=== PATIENT | male | born 1970 | race Native Hawaiian/Other Pacific Islander ===

== ENCOUNTER 2018-06-25 13:14 | Inpatient (IN) | payer MEDICAID ==
[~2018-06-25] VITALS: Ht 190.5 cm; Wt 102.7 kg
--- NOTE | 2018-06-25 15:20 | NUR ---
Pt. admitted to unit at 15:20 via direct admit from [facility] on 5150 for DTS. pt. came into [facility] voluntarily and stated he has been going down hill since February 2018. Overwhelming depression to the point that he considered jumping [place]. Pt. ambulated onto unit, belongings checked, and safety check and body check done. Pt. is tearful at times during the interview process, saying that he is homeless and has experienced a lot of adverse events since March 2018 most significant was breaking his arm and the cast not setting his radius correctly which now causes him pain. Addendum: 06/25/18 at 1818 by Felipe Montilla RN Admit note continued. Pt. currently reports that his pain in his right wrist is 3.5/10. Pt.'s vitals upon admission are pulse of 84, SP02 99, resp 18, BP of 141/87 Pt. currently denies SI/HI. Pt. is vegetarian, inessa collins in.
[2018-06-25] MEDS ORDERED: tuberculin, purif. prot. deriv. 5 units/0.1ml ID ONE (16:35)
[2018-06-25] MEDS ORDERED: acetaminophen 325mg tablet PO PRN (16:35)
[2018-06-25] MEDS ORDERED: magnesium hydroxide 30ml (MOM) UD suspension PO PRN (16:35)
[2018-06-25] MEDS ORDERED: mag hydrox/Alum hydrox/simeth 30ml oral suspension PO PRN (16:35)
[2018-06-25] MEDS ORDERED: HYDR25SU48 RC (17:01)
[2018-06-25] MEDS ORDERED: GEMF600T89 PO (17:01)
[2018-06-25] MEDS ORDERED: OMEP40CA37 PO (17:01)
[2018-06-25] MEDS ORDERED: TEST200V10 IM (17:01)
[2018-06-25] MEDS ORDERED: ACYC-202 PO (17:01)
[2018-06-25] MEDS ORDERED: NAPR-56 PO (17:01)
[2018-06-25] MEDS ORDERED: NICOTINE POLACRILEX 4 MG LOZENGE BC PRN (17:30)
[2018-06-25 20:00] VITALS: BP 131/87
[2018-06-25] MEDS ORDERED: clonazePAM 1mg tablet PO ONE (20:55)
[2018-06-25] MEDS ORDERED: NICOTINE POLACRILEX 2 MG LOZENGE MM PRN (21:10)
--- NOTE | 2018-06-25 23:38 | NUR ---
Nursing Progress Note Legal hold: 5150 Client on voluntary/involuntary status for being a danger to himself Report received from nurse with use of SALOME Wang RN Why are they here: The patient was admitted earlier today as a direct admit from [facility] ER on a 5150 hold after he reported that he was suicidal with a plan to jump off the overpass bridge. Assessment What has happened this shift: The patient has been fairly isolative to his room. He was pleasant on approach. He presents as motivated for treatment but is unhappy about being here on the hold. He states when he feels things are not in his control he has increased anxiety. He denies psychotic symptoms and none were evident during the evening assessment. He did state due to his severe lack of sleep that in recent weeks he has been seeing some small lights. He stated that he feels the number one problem that he is experiencing is his lack of sleep. He stated that in the past when he has been depressed he has been hypersomulent. He stated that his energy level has been ok but he has had very poor concentration. He stated that he has been having suicidal thoughts multiple times per day but not continuously. He is upset about his right arm having chronic pain and that he feels it never healed right. He is anxious to have it looked at medically why he is here. He stated that past dx include MDD, dysthymia, ARBEN, Borderline Aspergers and at one point antisocial personality disorder. S/I, H/I: The patient is here for suicidal thoughts to jump off an overpass A/VH: Denies currently Sleep: Appears to be asleep at this time after having one mg of klonopin ADL's:independant Group attendance: NA Were meds taken:Yes Any med S/E: The patient denies Mental Status Exam Appearance:Clean, appropriately dressed Eye contact: good Behavior: very pleasant, cooperative Speech: Coherent, spontaneous Mood: "Variable" per patient Affect: WNL Thought process:Linear and logical Thought Content: Situational difficulties, focused on his right arm and left index finger. Suicidal thoughts at times. Motivated for treatment Cognition: Alert and oriented Insight: Fair Judgment: Fair Interventions PRN's used: Nicotine lozenges Therapeutic interventions: One to one with the patient to assess severity of depressive symptoms and self harm risk. Reviewed his home med list with him and discussed homes with Dr. Mckeon and that the patient has not been sleeping well. The patient was made aware of the plan of care. Educated to current medications. Restraints/seclusion/emergency medication:NA Justification of Continued Inpatient Treatment: The patient has been feeling psychiatrically unstable and having suicidal thoughts to jump off an overpass.
[2018-06-26 07:30] VITALS: BP 109/72
[2018-06-26] MEDS ORDERED: hydrocortisone acetate 25mg rectal suppository RC SCH (08:00)
[2018-06-26] MEDS: pantoprazole 40mg Tablet.DR PO SCH (08:07)
[2018-06-26] MEDS: gemfibrozil 600mg tablet PO SCH (08:07)
[2018-06-26] MEDS: NICOTINE POLACRILEX 4 MG LOZENGE BC PRN ×4 (08:14→19:04)
[2018-06-26 09:08] LABS: CHOL/HDL RATIO 3.1 (0.00-4.99); CHOLESTEROL 202 MG/DL (0-200); HDL CHOLESTEROL 65 MG/DL (35-60); LDL CHOLESTEROL 108 MG/DL (50-100); TRIGLYCERIDES 170 MG/DL (20-135)
[2018-06-26 09:49] LABS: HEMOGLOBIN A1C 5.1 % (4.5-6.2)
[2018-06-26] MEDS: acetaminophen 325mg tablet PO PRN (11:50)
--- NOTE | 2018-06-26 17:00 | NUR ---
Nursing Progress Note Legal hold: 5150 Client on voluntary/involuntary status for being a danger to himself Report received from nurse with use of SALOME Akhtar RN Why are they here: The patient was admitted earlier today as a direct admit from [facility] ER on a 5150 hold after he reported that he was suicidal with a plan to jump off the overpass bridge. Assessment What has happened this shift: Pt. reports he slept well ast night with klonopin 1mg. Pt. seen in day room for meals and groups. Pt. very frustrated as both his meals were not vegetarian. Pt. anxious to be seen by medical doctor and psychiatrist today. Pt. reporting passive SI, "I want to go to sleep and not wake up". Pt. seen by hospitalist, pt. to get X-ray of left index finger, Right shoulder, and Right radius. Pt. talked with this RN about his past of being with last partner for 15 years and how his depression started 2 years ago when they broke up. Pt. reports that he has been told he has a personality d/o in the past by a mental health provider, but that another provider told him he has no personality d/o. Pt. is tearful at times and feels overwhelemed by multiple stressors in his life, including homelessness and lack of support systems. S/I, H/I: Pt. reports passive SI. A/VH: Denies currently Sleep: Appears to be asleep at this time after having one mg of klonopin ADL's:independant Group attendance: Y Were meds taken:Y Any med S/E: The patient denies Mental Status Exam Appearance:Clean, appropriately dressed Eye contact: good Behavior: Cooperative but frustrated at times. Speech: Coherent, spontaneous Mood: Labile at times. Affect: WNL Thought process:Linear and logical Thought Content: Situational difficulties, focused on his right arm and left index finger. Suicidal thoughts at times. Motivated for treatment Cognition: Alert and oriented Insight: Fair Judgment: Fair Therapeutic interventions: One to one with the patient to assess for severity of depressive symptoms and self harm risk. Discussed his plans for the future. Educated to medications. Restraints/seclusion/emergency medication:NA Justification of Continued Inpatient Treatment: The patient needs continuation of crisis interruption. Pt. to recieve x-rays of right shoulder, arm, and left index finger. Pt. is a risk for suicide 2nd to his depressive symptoms, feeling overwhelmed and not wanting to live, and homelessness.
[2018-06-26 20:00] VITALS: BP 125/83
[2018-06-26] MEDS: naproxen sodium 220mg tablet PO PRN (21:31)
[2018-06-26] MEDS ORDERED: traZODone 50mg tablet PO PRN (21:50)
--- NOTE | 2018-06-27 | NUR ---
Nursing Note: Pt. came out into the hallway wearing boxers, educated by this news writer that he needs to put pants on in order to come into the hallway. Pt. somewhat defensive, states, "You don't allow shorts?" however voices understanding.
[2018-06-27] MEDS: NICOTINE POLACRILEX 4 MG LOZENGE BC PRN ×3 (00:21→14:57)
[2018-06-27] MEDS ORDERED: QUEtiapine 25mg tablet PO ONE ×2 (00:40→21:00)
--- NOTE | 2018-06-27 04:34 | NUR ---
Nursing Progress Note: Legal hold: 5150 Client on voluntary/involuntary status for DTS Report received from nurse with use of SBAR: KHURRAM Wang Why are they here: Pt. admitted from [facility], where he has been a resident for the last 6-8 years. He previously lost his job in 2004, and was dependent on his 's income, however the two and he became homeless approximately 4 months ago. He reported anxiety and passive S/I, "I want to just sleep and go away in relation to the stress." Pt. also feels rejected, as he was denied voluntary admission to several mental health facilities r/t his insurance. He also has experienced multiple orthopedic injuries over the past 6-8 months including a right clavicular fracture, a right wrist fracture, and a left index finger injury. Injuries did not heal well and cause him chronic pain, new X-rays have been ordered for 06/27/18. Assessment What has happened this shift: Pt. standing in doorway of his room at beginning of the shift requesting Nicotine Lozenge, administered with effectiveness. He continued to isolate in his room throughout the shift reading in bed. 1:1 completed at bedside, pt. denies S/I and reports his depression is better and he is feeling hopeful about the positive things to come. Pt. states, "I am happy to be working with a team now, I felt dysfunctional on my medications before, I was too overwhelmed." Pt. also reports he has had insomnia for a few months r/t his anxieties, and he received 1mg of Clonazepam last night and was able to sleep through the night for the first time in a month. However, this writher explained to pt. that the Clonazepam he received last night was a one-time order. Order obtained from [facility] for Trazodone 100mg PRN, and medication administered. Pt. voiced slight irritation that he was not being given Clonazepam again as it had worked for him the night before, however compliant with medication. Pt. awoke at approximately 0015, and reported not being able to sleep despite receiving PRN Trazodone 2 hours previously and was feeling anxious r/t to this. [facility] notified and obtained new one-time order for Seroquel 100mg MRX1. Pt. again irritable r/t not receiving Clonazepam and requests to speak to MD regarding this tomorrow, however compliant with medication.. Pt. able to sleep through the rest of the night without needing second dose of Seroquel, will endorse to AM shift. S/I, H/I: Denies A/VH: Denies Sleep: Reports chronic insomnia, and awoke several times throughout the night requesting anxiolytic Clonazepam per sleep aide. ADL's: Independent Group attendance: Reports he attends groups Were meds taken: Yes Any med S/E: None Mental Status Exam Appearance: Freshly showered and dressed appropriately Eye contact: Good Behavior: Cooperative, fatigued, slightly restless and irritable at times Speech: Somewhat monotonous, however WNL Mood: Pleasant, somewhat guarded Affect: Blunted, animates with conversation Thought process: Poverty of thought r/t mental health Thought Content: Preoccupation with feelings of anxiety caused by insomnia. Cognition: A&O X4 Insight: Fair Judgment: Fair Interventions PRN's used: Trazodone X1 and Seroquel 100mg. Therapeutic interventions: Introduced self and established rapport, maintained a safe and therapeutic environment, provided medication education, insured contract for safety, monitored for changes in behavior, obtained orders for medications to promote sleep, and maintained Q 15 min. safety checks. Restraints/seclusion/emergency medication: N/A Justification of Continued Inpatient Treatment: Pt. requires interruption of crisis, medication adjustments, and group therapy. Also a plan for discharge as he is currently homeless.
[2018-06-27 08:00] VITALS: BP 104/67
[2018-06-27] MEDS: pantoprazole 40mg Tablet.DR PO SCH (09:02)
[2018-06-27] MEDS: gemfibrozil 600mg tablet PO SCH (09:03)
[2018-06-27 13:50] LABS: ALANINE AMINOTRANSFERASE 18 U/L (12-78); ALBUMIN 3.3 G/DL (3.4-5.0); ALBUMIN/GLOBULIN RATIO 1.1 (1.1-1.5); ALKALINE PHOSPHATASE 67 IU/L (46-116); ANION GAP 6 (8-16); ASPARTATE AMINO TRANSFERASE 15 U/L (10-37); BLOOD UREA NITROGEN 8 MG/DL (7-18); BUN/CREATININE RATIO 9.2 (5.4-32.0); CALCIUM 9.2 MG/DL (8.5-10.1); CHLORIDE 108 MMOL/L (99-107); CREATININE 0.87 MG/DL (0.60-1.10); GLUCOSE 75 MG/DL (70-104); POTASSIUM 4.2 MMOL/L (3.5-5.1); SODIUM 144 MMOL/L (135-145); TOTAL CARBON DIOXIDE 30.4 MMOL/L (24-32); TOTAL PROTEIN 6.4 G/DL (6.4-8.2); eGFR > 90 ML/MIN
[2018-06-27] MEDS ORDERED: venlafaxine XR 75mg capsule (Q24H) PO ONE (14:05)
[2018-06-27 14:42] LABS: BILIRUBIN,TOTAL 0.3 MG/DL (0.1-1.0)
[2018-06-27] MEDS: naproxen sodium 220mg tablet PO PRN (14:58)
--- NOTE | 2018-06-27 16:39 | NUR ---
Nursing Progress Note Legal hold: 5150 Client on voluntary/involuntary status for being a danger to himself Report received from Mariel PAULSON with use of SBAR Why are they here: The patient was admitted as a direct admit from [facility] ER on a 5150 hold after he reported that he was suicidal with a plan to jump [place] the over[place] bridge. Assessment What has happened this shift: Recieved Pt in bed sleeping w/o distress at shift change. Awake for breakfast and a bit frustrated at not being able to eat in room, but able to listen to redirection. Napped in AM and attended group with good participation. Actively engaged in discussion with nurse about life stressors and coping skills. Recieved new order/med of venlafaxine and acknowledged good understanding of effects and side effects. Has a posotive outlook on why he is here and wants to plan for overcoming obstacles in his life. S/I, H/I: Denies active SI. A/VH: Denies currently Sleep: Slept 5.75 hrs last night and napped in AM. ADL's:independant Group attendance: Y Were meds taken:Y Any med S/E: The patient denies Mental Status Exam Appearance:Clean, appropriately dressed Eye contact: good Behavior: Pleasant and cooperative Speech: Coherent, spontaneous Mood: Calm. Affect: WNL Thought process:Linear and logical Thought Content: On life stressors and frustratioins, yet motivated for treatment Cognition: Alert and oriented Insight: Fair Judgment: Fair Therapeutic interventions: One to one with the patient to assess for severity of depressive symptoms and self harm risk. Discussed his plans for the future. Educated to medications. Restraints/seclusion/emergency medication:NA Justification of Continued Inpatient Treatment: The patient needs continuation of crisis interruption. Pt. is a risk for suicide 2nd to his depressive symptoms, feeling overwhelmed and not wanting to live, and homelessness.
[2018-06-27 19:00] VITALS: BP 141/93
[2018-06-27] MEDS: acetaminophen 325mg tablet PO PRN (20:57)
[2018-06-27] MEDS ORDERED: quetiapine 100mg tablet PO SCH (21:00)
--- NOTE | 2018-06-28 03:15 | NUR ---
Nursing Progress Note: Legal hold: 5150 Client on involuntary status for DTS. Report received from nurse with use of SBAR: KHURRAM Clifford Why are they here: Pt. admitted from [facility], where he has been a resident for the last 6-8 years. He previously lost his job in 2004, and was dependent on his 's income, however the two and he became homeless approximately 4 months ago. He reported anxiety and passive S/I, "I want to just sleep and go away in relation to the stress." Pt. also feels rejected, as he was denied voluntary admission to several mental health facilities r/t his insurance. He also has experienced multiple orthopedic injuries over the past 6-8 months including a right clavicular fracture, a right wrist fracture, and a left index finger injury. Injuries did not heal well and cause him chronic pain, new X-rays have been ordered for 06/27/18. Assessment What has happened this shift: The patient was seen in his room for 1:1. He was calm and cooperative. He reports that a series of bad events has led to him being here. He has been homeless for 4 months, has no car, and basically wants help finding housing in [place] [facility]. "I've heard that [facility] has the best resources for people that are homeless and need help with transitional housing. I'm hoping a rn social services will get me set up with them." The patient denies SI/HI, or AV/H. He c/o pain to his right wrist and was given Tylenol with good results. He denies feeling depressed and does not appear anxious. He did no c/o insomnia and has been sleeping since med pass. He asked for and received Nicotine Lozenge x1 at beginning of shift. S/I, H/I: Denies A/VH: Denies Sleep: Has been sleeping since med pass. ADL's: Independent Group attendance: No groups tonight. Were meds taken: Yes Any med S/E: None noted or observed. Mental Status Exam Appearance: Freshly showered and dressed appropriately. Eye contact: Direct. Behavior: Cooperative, isolating in his room. Speech: Normal volume, rate/rhythm. Mood: "Great mood." Affect: Blunted, animates with conversation. Thought process: Linear, goal directed. Thought Content: Preoccupation with discharge to [facility].. Cognition: A&O X4 Insight: Fair Judgment: Fair Interventions PRN's used: Tylenol 650mg with good pain relief. Therapeutic interventions: Introduced self and established rapport, maintained a safe and therapeutic environment, provided medication education, insured contract for safety, monitored for changes in behavior, obtained orders for medications to promote sleep, and maintained Q 15 min. safety checks. Restraints/seclusion/emergency medication: N/A Justification of Continued Inpatient Treatment: Pt. requires interruption of crisis, medication adjustments, and group therapy. Also a plan for discharge as he is currently homeless.
[2018-06-28 07:00] VITALS: BP 101/71
[2018-06-28] MEDS ORDERED: venlafaxine XR 75mg capsule (Q24H) PO SCH (08:00)
[2018-06-28] MEDS: gemfibrozil 600mg tablet PO SCH (08:14)
[2018-06-28] MEDS: pantoprazole 40mg Tablet.DR PO SCH (08:15)
[2018-06-28] MEDS: naproxen sodium 220mg tablet PO PRN (08:43)
[2018-06-28] MEDS: NICOTINE POLACRILEX 4 MG LOZENGE BC PRN (08:44)
[2018-06-28] MEDS: acetaminophen 325mg tablet PO PRN (08:44)
[2018-06-28] MEDS ORDERED: QUET100T33 PO (10:13)
[2018-06-28] MEDS ORDERED: VENL75CA61 PO (10:13)
--- NOTE | 2018-06-28 11:37 | NUR ---
DISCHARGE NOTE Patient denies SI, AVH. Patient complaining about wrist and wanting to have surgery while inpatient. Educated on follow-up with orthopedics. [employer] St[employer] from [facility] here to take patient home. Educated on medications, emergency contact numbers, symptom management, follow-up, coping skills. Patient states that he is not going to stay in [place], but is trying to make it to [facility]. Patient unhappy about discharge. Patient discharged in stable condition.
[2018-07-09] MEDS ORDERED: TESTOSTERONE CYPIONATE IM SCH (09:00)
== END 2018-06-28 11:37 | disposition home or self-care (01) | DRG 754 ==
LOC: EEVIPCON → EDBD 15:18 → ADULT MH 15:18
PROVIDERS: ADMIT Psychiatry & Neurology Psychiatry; ATTEND Psychiatry & Neurology Psychiatry
DX: F32.9 Major depressive disorder, single episode, unspecified (principal); E87.0 Hyperosmolality and hypernatremia; E78.1 Pure hyperglyceridemia; F10.20 Alcohol dependence, uncomplicated; F41.1 Generalized anxiety disorder; E78.5 Hyperlipidemia, unspecified; F43.9 Reaction to severe stress, unspecified; F60.7 Dependent personality disorder; G47.00 Insomnia, unspecified; J45.909 Unspecified asthma, uncomplicated; Y90.9 Presence of alcohol in blood, level not specified; Z56.0 Unemployment, unspecified; Z59.0 Homelessness; Z76.5 Malingerer [conscious simulation]; Z80.0 Family history of malignant neoplasm of digestive organs; Z83.3 Family history of diabetes mellitus; Z87.81 Personal history of (healed) traumatic fracture; Z81.8 Family history of other mental and behavioral disorders; Z87.891 Personal history of nicotine dependence
CPT/HCPCS: 36415; 73000; 73110; 73140; 80053; 80061; 83036; 84439; 84443; 87070

== ENCOUNTER 2020-10-02 15:06 | Emergency (ER) | payer MEDICAID ==
[~2020-10-02] VITALS: Ht 190.5 cm; Wt 102.3 kg
[~2020-10-02 15:06] MED LIST: ACYC-129 PO; GEMF600T89 PO; NAPR-56 PO; OMEP40CA21 PO; QUET100T33 PO; TEST200V10 IM; VENL75CA61 PO
--- NOTE | 2020-10-02 17:00 | NUR ---
Received patient at 1645 from main ED. Pt was triaged by Geovanni. Pt is A&Ox4, expressing anxiety. Pt is currently five days at [facility] Dex- ETOH and was getting ready to go to the rehab side. Pt feels his anxiety is "because I'm covering it up with drinking." Pt remains calm and cooperative.
[2020-10-02 17:07] LABS: BASOPHILS # (AUTO) 0.1 X10'3 (0-0.2); BASOPHILS % (AUTO) 1.1 % (0-1); EOSINOPHILS # (AUTO) 0.2 X10'3 (0-0.9); EOSINOPHILS % (AUTO) 3.2 % (0-6); HEMATOCRIT 43.6 % (42.0-52.0); HEMOGLOBIN 14.8 g/dl (14.0-17.9); LYMPHOCYTES # (AUTO) 2.1 X10'3 (1.1-4.8); MEAN CORPUSCULAR HEMOGLOBIN 33.9 PG (27.0-31.0); MEAN CORPUSCULAR HGB CONC 33.9 g/dL (33.0-36.5); MEAN PLATELET VOLUME 7.7 FL (7.4-10.4); MONOCYTES # (AUTO) 0.7 X10'3 (0-0.9); MONOCYTES % (AUTO) 13.2 % (2-12); NEUTROPHILS # (AUTO) 2.5 X10'3 (1.8-7.7); NEUTROPHILS % (AUTO) 44.5 % (42-75); PLATELET COUNT 152 X10'3 (140-440); RED BLOOD COUNT 4.36 X10'6 (4.70-6.10); RED CELL DISTRIBUTION WIDTH 16.9 % (11.5-14.5); WHITE BLOOD COUNT 5.5 X10'3 (4.5-11.0)
[2020-10-02 17:26] LABS: ALANINE AMINOTRANSFERASE 224 U/L (12-78); ALBUMIN 3.3 G/DL (3.4-5.0); ALBUMIN/GLOBULIN RATIO 0.9 (1.1-1.5); ALKALINE PHOSPHATASE 92 IU/L (46-116); ANION GAP 5 (8-16); ASPARTATE AMINO TRANSFERASE 179 U/L (10-37); BILIRUBIN,TOTAL 0.6 MG/DL (0.1-1.0); BLOOD UREA NITROGEN 8 MG/DL (7-18); BUN/CREATININE RATIO 10.3 (5.4-32.0); CALCIUM 9.4 MG/DL (8.5-10.1); CHLORIDE 103 MMOL/L (99-107); CREATININE 0.78 MG/DL (0.60-1.10); GLUCOSE 100 MG/DL (70-104); POTASSIUM 4.2 MMOL/L (3.5-5.1); SODIUM 139 MMOL/L (135-145); TOTAL CARBON DIOXIDE 30.9 MMOL/L (24-32); TOTAL PROTEIN 6.9 G/DL (6.4-8.2); eGFR > 90 ML/MIN
[2020-10-02 17:28] LABS: CLARITY,URINE SLIGHTLY CLOUDY (Clear); COLOR,URINE STRAW (Yellow); GLUCOSE, URINE NEGATIVE (Neg); KETONES,URINE NEGATIVE (Neg); LEUKOCYTE ESTERASE ,URINE NEGATIVE (Neg); NITRITES, URINE NEGATIVE (Neg); OCCULT BLOOD,URINE NEGATIVE (Neg); PH,URINE 6.5 (4.8-8.0); PROTEIN,URINE NEGATIVE (Neg); UROBILINOGEN,URINE 0.2 E.U/dL (0.2-1.0)
[2020-10-02 17:30] LABS: UA COLLECTION TYPE CLN CATCH MIDSTREAM
[2020-10-02 17:33] LABS: URINE AMPHETAMINE SCREEN NEGATIVE (Neg); URINE BARBITUATE SCREEN NEGATIVE (Neg); URINE BENZODIAZEPINES SCREEN NEGATIVE (Neg); URINE CANNABINOID SCREEN POSITIVE (Neg); URINE COCAINE SCREEN NEGATIVE (Neg); URINE METHADONE SCREEN NEGATIVE (Neg); URINE OPIATE SCREEN NEGATIVE (Neg); URINE PHENCYCLIDINE SCREEN NEGATIVE (Neg)
[2020-10-02 17:35] LABS: ETHANOL < 0.010 GM/DL (0.0-0.010)
[2020-10-02 17:42] LABS: SQUAMOUS EPITHELIAL CELL,UR FEW /LPF (FEW)
[2020-10-02 17:43] LABS: RBC,URINE NONE SEEN /HPF (0-2); WBC,URINE 0-4 /HPF (0-4)
[2020-10-02 17:44] LABS: BACTERIA,URINE 3+ /HPF (Neg)
--- NOTE | 2020-10-02 19:27 | NUR ---
Assumed care of patient, pt was sitting in bed at change of shift, sat up and ate 100% of his dinner meal. Pt is anxious, states he was found passed out in [facility] and was taken to the hospital where he was given fluids. Pt went to [facility] for detox for 5 days but was unable to continue the program due to anxiety and depression. He went to [facility] for an eval and it was recommended he go to psyche placement before attempting etoh tx center. Pt states he is also on the autism spectrum. Pt is making calls to friends and family. Pt is pleasant and cooperative, although anxious and pacing.
[2020-10-02] MEDS ORDERED: HYDR-3686 (20:26)
[2020-10-02] MEDS ORDERED: CITA40TA17 PO (20:26)
[2020-10-02] MEDS ORDERED: CLON0.1T PO (20:26)
[2020-10-02] MEDS ORDERED: FLUT16SP26 NS (20:26)
[2020-10-02] MEDS ORDERED: TRAZ-256 PO (20:26)
[2020-10-02] MEDS ORDERED: GABA300S (20:26)
[2020-10-02] MEDS ORDERED: ONDA-103 PO (20:26)
[2020-10-02] MEDS ORDERED: MONT10TA32 PO (20:26)
[2020-10-02] MEDS ORDERED: GABA300C PO (21:13)
[2020-10-02] MEDS ORDERED: LORazepam 1 MG tablet PO ONE (21:25)
[2020-10-02] MEDS: cloNIDine 0.1 mg tablet PO SCH (22:03)
[2020-10-02] MEDS: gabapentin 300mg capsule PO SCH (22:03)
[2020-10-02] MEDS: traZODone 50mg tablet PO PRN (22:04)
[2020-10-02] MEDS: gemfibrozil 600mg tablet PO SCH (22:06)
--- NOTE | 2020-10-02 22:14 | NUR ---
Pt was allowed to watch television, but the tv was turned off at 10pm. Pt was asked to turn down his light so others could sleep, pt became agitated and requested to sit in a chair under a light and read quietly. Pt is still waiting on medication. Pt was informed we would get his medications as they became available. Pt asked if he could fill out a complaint form. Explained I didnt know of a form we had but offered paper and pencil, pt states "Not now, I dont want to do it now!" Assured patient he could do this if he'd like. Pt is sitting quietly reading and has been med compliant.
[2020-10-02] MEDS ORDERED: mag hydrox/Alum hydrox/simeth 30ml oral suspension PO ONE (22:15)
--- NOTE | 2020-10-02 23:36 | NUR ---
pt awake and cries out periodically, asked patient if he'd like a blanket, pt declined stating, "I just keep having night terrors every time I start to fall asleep." Pt got out of bed and went to the bathroom, and returned to bed and is resting quietly.
--- NOTE | 2020-10-03 00:22 | NUR ---
pt is laying on his right side asleep rr even and unlabored.
--- NOTE | 2020-10-03 01:08 | NUR ---
pt awake up to use the restroom and returned to bed.
--- NOTE | 2020-10-03 04:29 | NUR ---
pt is laying on his right side, asleep. RR even and unlabored. Pt wakes occasionally and yells out and then goes back to sleep. He explaines he has "night terrors" when he begins to fall asleep and sometimes wakes up during the night with night terrors.
--- NOTE | 2020-10-03 05:52 | NUR ---
Pt laying on right side sleeping.
--- NOTE | 2020-10-03 07:05 | NUR ---
pt is laying on his left side, eyes closed, regular breathing present, sleeping, no needs at this time
[2020-10-03] MEDS: pantoprazole 40mg Tablet.DR PO SCH (07:30)
[2020-10-03] MEDS ORDERED: nicotine 21mg patch - 24 hr TD ONE (08:00)
--- NOTE | 2020-10-03 08:38 | NUR ---
pt is sleeping no needs at this time
--- NOTE | 2020-10-03 08:57 | NUR ---
pt is sleeping, no needs at this time
[2020-10-03] MEDS: gabapentin 300mg capsule PO SCH ×3 (09:27→20:44)
[2020-10-03] MEDS: ondansetron 4mg rapidly disintigrating tab PO SCH ×2 (09:27→20:44)
[2020-10-03] MEDS: gemfibrozil 600mg tablet PO SCH ×2 (09:28→20:44)
[2020-10-03] MEDS: cloNIDine 0.1 mg tablet PO SCH ×2 (09:28→20:44)
[2020-10-03] MEDS: nicotine 7mg patch - 24hr TD SCH (09:28)
[2020-10-03] MEDS: montelukast 10mg tablet PO SCH (09:28)
[2020-10-03] MEDS: fluticasone nasal spray 16GM bottle NS SCH ×2 (09:29→20:44)
[2020-10-03] MEDS: citalopram 20mg tablet PO SCH (09:32)
--- NOTE | 2020-10-03 09:45 | NUR ---
pt is laying on his right side, sleeping, no needs at this time
--- NOTE | 2020-10-03 10:46 | NUR ---
pt is laying on his right side asleep, no needs at this time
--- NOTE | 2020-10-03 11:50 | NUR ---
[facility]ell [facility] evnm pt pt is calm, no needs at this time
--- NOTE | 2020-10-03 12:19 | NUR ---
pt was accepting of covid SWAB, WENT RIGHT BACK TO SLEEP, NO NEEDS AT THIS TIME
--- NOTE | 2020-10-03 13:05 | NUR ---
Pt supine in bed, asleep, no needs at this time
--- NOTE | 2020-10-03 14:06 | NUR ---
pt is asleep, no needs at this time
--- NOTE | 2020-10-03 14:59 | NUR ---
pt is laying on his right side, sleeping, no needs at this time
[2020-10-03] MEDS ORDERED: LORazepam 1 MG tablet PO ONE (15:45)
--- NOTE | 2020-10-03 15:56 | NUR ---
pt req Ativan, having detox, painic attack, obtained order
--- NOTE | 2020-10-03 17:09 | NUR ---
pt laying on left side, eyes closed, regular breathing present, no needs at this time
--- NOTE | 2020-10-03 19:00 | NUR ---
One to one with the patient to assess for severity of depressive symptoms and self harm risk. He was updated on the plan of care. He presents as comfortable on the unit and is currently resting on his bed after eating dinner and was reading a book. He currently states that his mood has improved now that he is on the unit. He denies active suicidal thoughts at this time but reports he can not be safe if not here on the unit. When he was told that a 5150 was written he stated, "thank god. That was the goal" he is focused on being able to go to a dual diagnosis treatment program and being able to receive ativan or another form of benzo for his anxiety. He denies that other medications have benefited him.
--- NOTE | 2020-10-03 19:51 | NUR ---
The patient appears to be sleeping.
[2020-10-03] MEDS: traZODone 50mg tablet PO PRN (20:49)
--- NOTE | 2020-10-03 21:41 | NUR ---
The patient is somewhat entitled but cooperative. He appears to be asleep at this time.
--- NOTE | 2020-10-04 00:06 | NUR ---
The patient appears to be sleeping
--- NOTE | 2020-10-04 01:57 | NUR ---
The patient appears to be sleeping
--- NOTE | 2020-10-04 03:48 | NUR ---
The patient appears to be sleeping
--- NOTE | 2020-10-04 05:18 | NUR ---
The patient appears to be sleeping
[2020-10-04 06:19] VITALS: BP_DIAS 80
[2020-10-04 06:27] VITALS: BP_SYST 127
[2020-10-04] MEDS: gemfibrozil 600mg tablet PO SCH (08:28)
[2020-10-04] MEDS: cloNIDine 0.1 mg tablet PO SCH (08:28)
[2020-10-04] MEDS: gabapentin 300mg capsule PO SCH (08:28)
[2020-10-04] MEDS: montelukast 10mg tablet PO SCH (08:29)
[2020-10-04] MEDS: pantoprazole 40mg Tablet.DR PO SCH (08:29)
[2020-10-04] MEDS: ondansetron 4mg rapidly disintigrating tab PO SCH (08:29)
[2020-10-04] MEDS: citalopram 20mg tablet PO SCH (08:29)
[2020-10-04] MEDS: fluticasone nasal spray 16GM bottle NS SCH (08:31)
[2020-10-04] MEDS: nicotine 7mg patch - 24hr TD SCH (08:37)
[2020-10-06] MEDS ORDERED: QUET25TA34 PO (13:22)
[2020-10-06] MEDS ORDERED: ONDA4TAB12 PO (13:22)
[2020-10-06] MEDS ORDERED: TRAZ-256 PO (13:22)
[2020-10-06] MEDS ORDERED: HYDR-3686 PO (13:22)
== END 2020-10-04 10:06 ==
LOC: ER 15:07
DX: R45.851 Suicidal ideations (principal); Z20.822 Contact with and (suspected) exposure to COVID-19; F17.210 Nicotine dependence, cigarettes, uncomplicated; F12.90 Cannabis use, unspecified, uncomplicated; Z72.89 Other problems related to lifestyle
CPT/HCPCS: 36415; 80053; 80305; 80320; 81001; 84443; 85025; 87426; 99285